=== PATIENT | female | born 1995 | race Caucasian/White ===

== ENCOUNTER 2024-05-01 11:29 | Outpatient (AMB) | payer OTHER, SELFPAY ==
[2024-05-01 11:54] VITALS: BP 110/60; BMI 26.3
--- NOTE | 2024-05-01 11:54 | MHC.OFFVIS ---
Vital Signs 05/01/24 11:54 Height 5 ft 8 in Weight 173 lb BMI 26.3 BP 110/60 Intake Visit Reasons: New patient Annual Corporate Director Of Human Resources Required: No Information Interpreted: clinical only Disability Representative: Disability Representative Present Allergies No Known Allergies Allergy (Verified 05/01/24 11:55) Is last menstrual period known: Yes (04/14/24) Do you need a note to return to daycare/school/sports/work: No HPI HPI New patient Annual: Details: Patient is here for new algologist exam.. She has not having any algologist problems she has a [employer] that served her well she has had it for a couple of years she was told it could last 8 years. Her periods are very light and only last about 3 days. She is open to STI testing the exam she thought she had a Pap smear last year and thought she arrange for records to be sent but there no where in the system. She is recently enrolled in nursing school she knows that she got the HPV vaccine. She is healthy she does mountain biking and skiing for exercise. PFSH Medical History (Updated 05/01/24 @ 12:45 by Stephania Aranda CNM) Depression Surgical History (Updated 05/01/24 @ 11:57 by Alfredo Prieto CMA) H/O: knee surgery Branch teeth removed Family History (Updated 05/01/24 @ 12:01 by Alfredo Prieto CMA) Father Diabetes Social History (Updated 05/01/24 @ 12:00 by Alfredo Prieto CMA) Alcohol intake: never Patient Tobacco Use Status: Never used Tobacco Use of substances other than those prescribed or required for medical reasons: No Female Reproductive History Menstrual Age of Menarche: 16 Duration of menses: <3 days control method: progestin IUCD Total pregnancies: 0 Date of last pap smear: 12/11/22 (negative) History of abnormal pap smear: No Physical Exam Vital Signs: Last Vital Signs BP 110/60 05/01/24 11:54 BMI result Body Mass Index 26.3 Const General: healthy appearing, comfortable, no acute distress, well developed and alert Nutritional Appearance: average body habitus Orientation/consciousness: patient oriented x3 Limitations: no limitations HEENT Head: Yes normocephalic Neck Neck: Yes normal visual inspection Chest Chest palpation & inspection: normal inspection of the chest Breast/axilla inspection: normal inspection of the breasts and normal inspection of the axillae Breast/axilla palpation: normal palpation of the breasts and normal palpation of the axillae Resp Effort & Inspection: normal respiratory effort GI Inspection: Yes normal to inspection, No Abdominal wall edema and No distended Palpation (GI): Soft to palpation and nontender General: Yes bladder normal to palpation External Female Exam: normal external appearance and normal appearance of the urethra Speculum Exam - Vagina: normal appearance of the vagina, normal palpation and normal vaginal discharge Speculum Exam - Cervix: normal appearance of the cervix, normal palpation and nontender Bimanual exam- vagina & uterus: normal bimanual exam, normal palpation, uterine size normal, bladder normal to palpation, consistency normal, normal palpation, uterine mobility normal, uterine shape normal, No Cervical tenderness present, non-tender and no cervical motion tenderness Bimanual Exam- Adnexa, other: normal adnexae, no masses, normal and No adnexal tenderness Neuro General: patient oriented x3 Assessment & Plan Assessment & Plan (1) Well woman exam with routine gynecological exam: Code(s): Z01.419 - Encounter for gynecological examination (general) (routine) without abnormal findings Category: Medical (2) Cervical cancer screening: Code(s): Z12.4 - Encounter for screening for malignant neoplasm of cervix Category: Medical (3) Breast cancer screening: Code(s): Z12.39 - Encounter for other screening for malignant neoplasm of breast Category: Medical (4) Encounter for screening examination for sexually transmitted disease: Code(s): Z11.3 - Encounter for screening for infections with a predominantly sexual mode of transmission Category: Medical (5) Presence of 52 mg levonorgestrel-releasing intrauterine device (IUD): Comment: has Liletta in for about 2 yrs, gets light scant 3 day menses, likes it. Code(s): Z97.5 - Presence of (intrauterine) contraceptive device Category: Social Hx Plan -----Discussed in this visit the following: healthy balanced diet, regular and consistent exercise, getting recommended health screens, doing the best she can for her particular health concerns, kegel exercises, pap smear screening and followup recommendations, mammography screening and SBE, normal changes in cycles in her life stage--- . Reviewed the Liletta and how long it can last and her happiness with it. Reviewed cervical cancer screening while she thought she had a Pap smear last year she could not find the results and results were not in the system anywhere and offered her the opportunity to just have Pap smear and go from here with Q 3 year testing if this is normal. She accepted Pap smear. She is very sure she got HPV vaccine. She accepted vaginal test for STIs but has no need of any blood work for STIs. RTC 1 year or p.r.n.. Coding Level of Care Code New Pt Prev Care 18-39yr([id number] Diagnoses Well woman exam with routine gynecological exam Z01.419 Cervical cancer screening Z12.4 Breast cancer screening Z12.39 Encounter for screening examination for sexually transmitted disease Z11.3 Presence of 52 mg levonorgestrel-releasing intrauterine device (IUD) Z97.5
== END 2024-05-01 12:56 | disposition home or self-care (01) ==
LOC: HO.HWSM 11:29
PROVIDERS: Visit Provider Advanced Practice Midwife
DX: Z01.419 Encounter for gynecological examination (general) (routine) without abnormal findings (principal); Z12.4 Encounter for screening for malignant neoplasm of cervix; Z12.39 Encounter for other screening for malignant neoplasm of breast; Z11.3 Encounter for screening for infections with a predominantly sexual mode of transmission; Z97.5 Presence of (intrauterine) contraceptive device
CPT/HCPCS: 99385

== ENCOUNTER 2024-05-01 11:29 | Outpatient (REF) | payer OTHER, SELFPAY ==
[2024-05-02 05:00] LABS: CT PCR NOT DETECTED (Not Detect.); NG PCR NOT DETECTED (Not Detect.)
[2024-05-02 13:08] LABS: Bacterial Vaginosis PCR NEGATIVE (Negative); Candida Group PCR NOT DETECTED (Not Detect); Candida glab krusei PCR NOT DETECTED (Not Detect); Trichomonas vaginalis PCR NOT DETECTED (Not Detect)
[2024-05-06 10:44] LABS: HPV mRNA E6/E7 Not Detected (Not Detected)
== END 2024-05-01 11:30 | disposition home or self-care (01) ==
LOC: HO.LAB 11:29
PROVIDERS: Visit Provider Advanced Practice Midwife
DX: Z01.419 Encounter for gynecological examination (general) (routine) without abnormal findings (principal); N89.8 Other specified noninflammatory disorders of vagina; Z11.3 Encounter for screening for infections with a predominantly sexual mode of transmission; Z97.5 Presence of (intrauterine) contraceptive device
CPT/HCPCS: 0352U; 0353U; 36415; 87624; 88175; 99385